=== PATIENT | male | born 1985 | race Caucasian/White ===

== ENCOUNTER 2024-03-26 23:15 | Emergency (ER) | payer OTHER, SELFPAY ==
[2024-03-26 23:17] VITALS: BP 183/110; PULSE 100; RESP 18; TEMP 36.6; O2SAT 100; BMI 40.1
--- NOTE | 2024-03-26 23:35 | EDS_ITS ---
HPI History of Present Illness Chief Complaint: Dental Informant: patient Narrative Narrative: Patient is a 38-year-old male who reports no significant past medical history. He states he recently traveled up here from [place] for work training. He states that he went to bed feeling normally and then he awoke Monday with left- sided facial swelling. He states there has been no trauma and he denies any trouble breathing or swallowing. He states as the day has passed he feels the swelling is increased and secondary to this comes in for evaluation [facility] Medical History no medical history no medical history Home Medications ?Medication ?Instructions ?Recorded ?Last Taken ?Type amoxicillin 875 mg-potassium 1 tab PO BID 7 days #14 tabs 03/26/24 Unknown Rx clavulanate 125 mg tablet Allergy/AdvReac Type Severity Reaction Status Date / Time betamethasone (From Allergy Mild UNKNOWN Verified 03/26/24 23:17 [place]) Social History Smoking Status: Never smoker ROS ROS ED Constitutional Constitutional ED: Denies chills or fever(s) ENT ENT ED: Reports other Details: Positive facial swelling ; Denies sore throat Cardiovascular Cardiovascular: Denies chest pain Respiratory/Chest Respiratory/Chest: Denies cough or dyspnea Gastrointestinal Gastrointestinal: Denies abdominal pain, diarrhea, nausea or vomiting Musculoskeletal Musculoskeletal: Denies neck pain Integumentary Denies rash Neurologic Neurologic: Denies headache(s) Hematologic/Lymphatic Hematologic/Lymphatic: Denies easy bleeding or easy bruising Allergic/Immunologic Allergic/Immunologic ED: Denies mouth swelling or tongue swelling EXAM Physical Exam Const Vital Signs: 03/26/24 23:17 03/26/24 23:54 Temperature 97.8 F 97.9 F Temperature Source Temporal Pulse Rate 100 79 Respiratory Rate 18 16 Blood Pressure 183/110 H 164/89 H Blood Pressure Mean 134 114 Pulse Ox 100 100 Oxygen Delivery Method Room Air Positive well nourished, well developed and obese General Appearance ED: well developed Nutritional Appearance: obese HEENT Reports TM's clear and moist mucous membranes HEENT Narrative: No tongue or lip swelling no oral lesions no airway edema or compromise No signs of infection noted in the posterior pharynx Patient has dental caries but no obvious dental abscess noted No signs of ANUG No brawny edema in the submental space to suggest Ignacio's angina Patient has soft tissue swelling along the lateral aspect of the left cheek most consistent/concerning for parotitis Tympanic Membrane ED: Yes TM's clear Eyes PERRL and EOMs intact bilaterally Neck supple Resp normal respiratory effort and clear to auscultation bilaterally Cardio regular rate and regular rhythm Extremity normal to inspection Neuro oriented x3, CN's II-XII intact bilaterally and no sensory deficits noted Sensorium / Orientation: alert Motor Exam: strength 5/5 throughout Psych mental status grossly normal Skin Skin Narrative: Soft tissue swelling along the left cheek as documented above MDM MDM MDM Narrative Medical decision making narrative: Patient arrived to ER hypertensive but otherwise with stable vitals. He reported sudden onset swelling of the left face/cheek without report or signs of trauma. Differential diagnosis is for dental abscess versus parotitis. Physical exam showed changes along the lateral aspect of the left face/cheek and this is located mainly over the parotid gland. I do not believe this is dental abscess as he does not have any physical exam findings concerning for this on or al inspection. He does not have signs of ANUG or Ignacio angina either. Other than hypertension vitals are stable and he does not have a history of immunosuppression so do not feel the need for imaging or lab work. Patient will be placed on Augmentin secondary to concern for parotid gland infection but is otherwise safe for discharge History & Record Review Discussion w/independent historian: Patient Discharge Plan Triage Chief Complaint: Dental ED Provider: Milan Dior Dx/Rx/DC Orders Clinical Impression: Acute parotitis, Hypertension Instructions: ED Salivary Gland Infection Prescriptions: New amoxicillin-pot clavulanate 875-125 mg tablet 1 tab PO BID 7 Days Qty: 14 0RF Primary Care Provider: REMBERTO DOMINGO II Referrals: [facility] Doctor,Out of [Non-Staff] - Activity Restrictions/Additional Instructions: Your history and exam indicate you have an infected or blocked parotid gland. Suck on sour tart candies to help with any potential obstruction and use antibiotic as directed to resolve the infection process. If you develop a fever over 100.4 or have worsening symptoms despite taking the antibiotic please return to the ER for repeat evaluation. It will typically take 2 to 3 days for your symptoms to improve. Print Language: [place] Disposition Disposition: Home, Self Care Discharge Date/Time: 03/26/24 23:54
[2024-03-26] MEDS: Amox/Clavulanate 875 MG Tablet PO (23:39)
[2024-03-26 23:54] VITALS: BP 164/89; PULSE 79; RESP 16; TEMP 36.6; O2SAT 100
== END 2024-03-26 23:54 | disposition home or self-care (01) ==
PROVIDERS: Emergency Provider Emergency Medicine; Visit Provider Emergency Medicine
DX: K11.21 Acute sialoadenitis (principal); I10 Essential (primary) hypertension
CPT/HCPCS: 99282